=== PATIENT | male | born 1990 | race Caucasian/White ===

== ENCOUNTER 2021-06-19 21:31 | Emergency (ER) | payer OTHER | END 2021-06-19 23:05 | disposition home or self-care (01) | LOC: FER 21:31 | DX: R21 Rash and other nonspecific skin eruption (principal); F17.220 Nicotine dependence, chewing tobacco, uncomplicated; Z88.0 Allergy status to penicillin | CPT/HCPCS: 99282 ==

== ENCOUNTER 2021-09-25 19:03 | Emergency (ER) | payer OTHER ==
[2021-09-25 20:20] LABS: BASOPHIL 0.5 % (0-2); EOSINOPHIL 1.1 % (0-5); HCT 43.7 % (42.0-52.0); HGB 14.8 g/dl (13.2-18.0); MCH 31.6 pg (25.0-31.0); MCHC 33.9 g/dL (32.0-36.0); MCV 93.2 fL (78.0-100.0); MONOCYTE 10.1 % (0-12); MPV 10.6 fL (6.0-9.5); NEUTROPHIL 56.1 % (41-80); NRBC 0; PLT 181 K/uL (150-400); RBC 4.69 M/uL (4.70-6.00); RDW 12.3 % (11.5-14.0); WBC 6.7 K/uL (4.0-10.5)
[2021-09-25 20:37] LABS: BUN/CREAT RATIO (CALC) 16.7 RATIO; CREATININE 0.78 mg/dL (0.67-1.17); POTASSIUM 4.1 mmol/L (3.5-5.1)
[2021-09-25] MEDS ORDERED: PREDNISONE 20MG20 MG PO (21:40)
== END 2021-09-25 22:02 | disposition home or self-care (01) ==
LOC: FER 19:03
PROVIDERS: Emergency Medicine Emergency Medical Services
DX: J68.9 Unspecified respiratory condition due to chemicals, gases, fumes and vapors (principal); R07.89 Other chest pain; Z88.0 Allergy status to penicillin
CPT/HCPCS: 36415; 71045; 80048; 85025; 85379; 93005; 94640; 94664; J2930